=== PATIENT | male | born 1975 | race African-American/Black ===

== ENCOUNTER 2018-04-21 14:39 | Emergency (ER) | payer SELFPAY ==
[~2018-04-21] VITALS: Ht 177.8 cm; Wt 106.6 kg
[2018-04-21 14:50] VITALS: BP 144/86
--- NOTE | 2018-04-21 14:50 | NUR ---
ED Nurse Note: PT WALKED IN TO ER TODAY FROM HOME. AOX4. PT C/O RIGHT FAITH PAIN, 2/10 X 2 DAYS AGO. PT ALSO C/O REDNESS AND DISCOLORATION. PT DENIES TRAUMA OR INJURY AND SUSPECTS IT MAY BE A BUG BITE.
--- NOTE | 2018-04-21 14:56 | Emergency Room Report ---
History of Present Illness General Chief Complaint: Animal Bite Source: Patient Present Illness HPI 43-year-old male presents to the emergency department complaining of 2 out of 10 in severity discomfort to the anterior right xiong in addition to progressive redness and warmth that was about what he believes an insect bite. Patient states initial symptoms were a small area of swelling that was itchy and it has now progressed to a larger area and he is having moderate erythema and discoloration. Patient denies fevers or chills he denies history of immunocompromise he denies recent travel or long periods of being sedentary. Patient denies significant past medical history. He denies trauma or fall. Allergies: Coded Allergies: No Known Allergies (Unverified , 04/21/18) Patient History Past Medical History: see triage record Past Surgical History: none Pertinent Family History: none Immunizations: UTD Reviewed Nursing Documentation: PMH: Agreed; PSxH: Agreed Nursing Documentation-PM Past Medical History: No Stated History Review of Systems All Other Systems: negative except mentioned in HPI Physical Exam Vital Signs Date Time Temp Pulse Resp B/P (MAP) Pulse Ox O2 Delivery O2 Flow Rate FiO2 04/21/18 14:46 98.2 72 18 150/95 97 Room Air Sp02 EP Interpretation: reviewed, normal General Appearance: no apparent distress, alert, GCS 15, non-toxic Head: normocephalic, atraumatic Eyes: bilateral eye normal inspection, bilateral eye PERRL ENT: hearing grossly normal, normal voice Neck: full range of motion Respiratory: lungs clear, normal breath sounds, speaking full sentences Cardiovascular #1: regular rate, rhythm Musculoskeletal: back normal, gait/station normal, normal range of motion, non- tender Neurologic: alert, oriented x3, responsive, motor strength/tone normal, sensory intact, speech normal, grossly normal Psychiatric: judgement/insight normal Skin: warm/dry, well hydrated, other - swelling, erythema and warmth to localized area of the right xiong, non-circumferential. Lymphatic: no adenopathy Medical Decision Making PA Attestation Dr. Roberson is my supervising Physician whom patient management has been discussed with. Diagnostic Impression: Primary Impression: Cellulitis Qualified Codes: L03.115 - Cellulitis of right lower limb ER Course 43-year-old male presents to the emergency department complaining of 2 out of 10 in severity discomfort to the anterior right xiong in addition to progressive redness and warmth that was about what he believes an insect bite. Patient states initial symptoms were a small area of swelling that was itchy and it has now progressed to a larger area and he is having moderate erythema and discoloration. Patient denies fevers or chills he denies history of immunocompromise he denies recent travel or long periods of being sedentary. Patient denies significant past medical history. He denies trauma or fall. Ddx considered but are not limited to cellulitis, DVT, abscess, fracture, d/L, gout Vital signs: are WNL, pt. is afebrile H&PE are most consistent with localized cellulitis ORDERS: none required at this time, the diagnosis is clinical ED INTERVENTIONS: None required at this time. DISCHARGE: At this time pt. is stable for d/c to home. Will provide printed patient care instructions, and any necessary prescriptions. Care plan and follow up instructions have been discussed with the patient prior to discharge. Last Vital Signs Date Time Temp Pulse Resp B/P (MAP) Pulse Ox O2 Delivery O2 Flow Rate FiO2 04/21/18 14:46 98.2 72 18 150/95 97 Room Air Disposition: HOME, SELF-CARE Condition: Stable Patient Instructions: Cellulitis, [id number] Additional Instructions: Take medications as directed. Follow up with a Primary Care Provider in 3-5 days, even if your symptoms have resolved. --Please review list of primary care clinics, if you do not already have a primary care provider Return sooner to ED if new symptoms occur, or current symptoms become worse. - Please note that this Emergency Department Report was dictated using [employer] technology software, occasionally this can lead to erroneous entry secondary to interpretation by the dictation equipment. [place] Apr 21, 2018 14:56
[2018-04-21] MEDS ORDERED: CEPHALEXIN500 MG ORAL (15:07)
[2018-04-21] MEDS ORDERED: BACTRIM DS TAB1 EAC1 ORAL (15:07)
[2018-04-21 15:26] VITALS: BP 144/88
--- NOTE | 2018-04-21 15:29 | NUR ---
ED Nurse Note: PT SITTING PEACEFULLY IN BED IN NAD. AOX4. PRESCRIPTIONS AND DISCHARGE PAPERWORK EXPLAINED TO PT. PT VERBALIZES UNDERSTANDING AND DENIES ANY QUESTIONS AT THIS TIME. PRESCRIPTION AND DISCHARGE PAPERWORK GIVEN TO PT AND ID WRISTBAND REMOVED. PT WALKED OUT OF ER WITH STEADY GAIT AND ALL BELONGINGS.
== END 2018-04-21 15:29 | disposition home or self-care (01) ==
LOC: EMR 15:21
DX: L03.115 Cellulitis of right lower limb (principal)
CPT/HCPCS: 99282

== ENCOUNTER 2018-10-04 17:53 | Emergency (ER) | payer MEDICAID ==
[~2018-10-04] VITALS: Ht 177.8 cm; Wt 108.9 kg
[~2018-10-04 17:53] MED LIST: BACTRIM DS TAB1 EAC1 ORAL; CEPHALEXIN500 MG ORAL
[2018-10-04 18:02] VITALS: BP 140/93
[2018-10-04] MEDS ORDERED: NKM (18:05)
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
[2018-10-04] MEDS ORDERED: NAPROXEN500 M2 ORAL (18:16)
[2018-10-04] MEDS ORDERED: ROBAXIN500 MG PO (18:16)
[2018-10-04 18:21] VITALS: BP 140/93
--- NOTE | 2018-10-04 18:21 | NUR ---
ER DISCHARGE NOTE: Patient is cleared to be discharged per ERMD, pt is aox4, on room air, with stable vital signs. pt was given dc and prescription instructions, pt was able to verbalize understanding, pt id band. pt is able to ambulate with steady gait. pt took all belongings.
== END 2018-10-04 18:25 | disposition home or self-care (01) ==
LOC: EMR 18:23
DX: S16.1XXA Strain of muscle, fascia and tendon at neck level, initial encounter (principal); V43.52XA Car driver injured in collision with other type car in traffic accident, initial encounter; Y92.410 Unspecified street and highway as the place of occurrence of the external cause; M25.512 Pain in left shoulder; M25.511 Pain in right shoulder
CPT/HCPCS: 99282